=== PATIENT | female | born 1970 | race African-American/Black ===

== ENCOUNTER 2018-07-09 15:48 | Emergency (ER) | payer OTHER ==
[~2018-07-09] VITALS: Ht 167.6 cm; Wt 106.6 kg
[2018-07-09] MEDS ORDERED: ACYCLOVIR 400400 MG PO (16:20)
[2018-07-09] MEDS ORDERED: AMLODIPINE BESY10 MG PO (16:20)
[2018-07-09] MEDS ORDERED: HYDROCHLOROTHIA25 M2 PO ×2 (16:20→17:57)
[2018-07-09] MEDS ORDERED: DOXYCYCLINE 10100 MG PO (16:21)
[2018-07-09 16:52] LABS: ABSOLUTE NEUTROPHILS 4.2 thou/uL (1.4-8.2); BASOPHILS 1.1 % (0.0-2.0); EOSINOPHILS 0.8 % (0.0-3.0); HEMATOCRIT 40.1 % (37.0-47.0); HEMOGLOBIN 13.5 gm/dL (12.0-15.0); LYMPHOCYTES 39.5 % (24.0-44.0); MCH 28.4 pg (26.0-34.0); MCHC 33.6 g/dL (28.0-37.0); MCV 84.4 fL (80.0-100.0); MONOCYTES 8.2 % (1.0-8.0); PLATELET COUNT 288 thou/uL (150-400); POLYS 50.4 % (36.0-66.0); RBC 4.75 mil/uL (4.20-5.00); RDW 14.8 % (10.5-14.5); WBC 8.3 thou/uL (4.0-11.0)
[2018-07-09 17:02] LABS: ANION GAP 6 mmol/L (7-16); BUN 15 mg/dL (7-18); CALCIUM 9.4 mg/dL (8.5-10.1); CHLORIDE 102 mmol/L (98-107); CO2 30 mmol/L (21-32); GLUCOSE 105 mg/dL (74-106); POTASSIUM 3.7 mmol/L (3.5-5.1); SODIUM 138 mmol/L (136-145)
[2018-07-09 17:10] LABS: ALBUMIN 3.3 g/dL (3.4-5.0); MAGNESIUM 1.8 mg/dL (1.8-2.4); SGOT 19 U/L (15-37); SGPT 30 U/L (30-65); TOTAL BILIRUBIN 0.2 mg/dL (<0.1-1.0); TOTAL PROTEIN 7.6 g/dL (6.4-8.2); TROPONIN-I <0.06 ng/mL (<0.06)
[2018-07-09] MEDS ORDERED: NORVASC10 MG PO (17:57)
[2018-07-09] MEDS ORDERED: LISINOPRIL40 MG PO (17:57)
[2018-07-09] MEDS ORDERED: BUTALB-APAP-CA1 EACH PO (18:09)
[2018-07-09 18:16] VITALS: BP 132/74
== END 2018-07-09 18:17 | disposition home or self-care (01) ==
LOC: ER 15:48
PROVIDERS: Emergency Medicine
DX: G44.209 Tension-type headache, unspecified, not intractable (principal); R07.89 Other chest pain; R20.2 Paresthesia of skin; Z76.0 Encounter for issue of repeat prescription; M32.9 Systemic lupus erythematosus, unspecified; Z88.5 Allergy status to narcotic agent; Z90.710 Acquired absence of both cervix and uterus; Z90.89 Acquired absence of other organs